=== PATIENT | female | born 1945 | race Caucasian/White ===

== ENCOUNTER 2017-05-08 09:35 | Emergency (ER) | payer OTHER, MEDICARE ==
[2017-05-08 09:48] VITALS: BP 154/91; PULSE 98; TEMP 97.8; BMI 39.2
--- NOTE | 2017-05-08 09:56 | PDOC ---
History of Present Illness - General Chief Complaint: Pain Stated Complaint: RT SHOULDER PAIN Time Seen by Provider: 05/08/17 09:42 History Source: Patient Exam Limitations: No Limitations - History of Present Illness Initial Comments: 05/08/17 09:57 72-year-old female history of arthritis, [id number], presents with right shoulder pain. The patient was visiting a patient here at [facility], she was attempting to catch the elevator and lunged for it. Patient started to feel right shoulder strain worsened with movements. States that when she palpates her right anterior shoulder and right upper pectoralis muscle that it reproduces the pain. Denies any neck pain or shooting-like sensation. Denies any numbness or weakness. Patient came into the ED for further evaluation. Past History - Past Medical History Allergies/Adverse Reactions: Allergies Allergy/AdvReac Type Severity Reaction Status Date / Time NARCOTICS AdvReac Nausea Uncoded 05/08/17 09:46 Home Medications: Ambulatory Orders Aspirin [ASA -] 81 mg PO DAILY 05/17/14 Atorvastatin Ca [Lipitor] 10 mg PO DAILY 05/17/14 Naproxen Sod/Diphenhydram HCl [Aleve Pm Caplet] 1 each PO HS 05/08/17 Ramipril 10 mg PO DAILY 05/08/17 HTN: Yes Hypercholesterolemia: Yes Other medical history: ARTHRITIS - Surgical History Appendectomy: Yes - Suicide/Smoking/Psychosocial Hx Smoking History: Never smoked Have you smoked in the past 12 months: No Information on smoking cessation initiated: No Hx Alcohol Use: (occasional) Substance Use Type: None Review of Systems - Review of Systems Able to Perform ROS?: Yes Comments:: 05/08/17 09:58 GENERAL/CONSTITUTIONAL: No fever, weakness. HEAD, EYES, EARS, NOSE AND THROAT: No change in vision. No ear pain or discharge. No sore throat. CARDIOVASCULAR: No chest pain or shortness of breath. RESPIRATORY: No cough, wheezing, or hemoptysis. GASTROINTESTINAL: No abdominal pain, nausea, vomiting, diarrhea, or decreased PO intolerance. GENITOURINARY: No dysuria, frequency, or change in urination. MUSCULOSKELETAL: No joint or muscle swelling or pain. No neck or back pain. + Right shoulder pain. SKIN: No rash NEUROLOGIC: No headache, vertigo, loss of consciousness, or change in strength/ sensation. ENDOCRINE: No increased thirst. No abnormal weight change. HEMATOLOGIC/LYMPHATIC: No anemia, easy bleeding, or history of blood clots. ALLERGIC/IMMUNOLOGIC: No hives or skin allergy. *Physical Exam - Vital Signs Last Vital Signs Temp Pulse Resp BP Pulse Ox 97.8 F 98 H 18 154/91 100 05/08/17 09:35 05/08/17 09:35 05/08/17 09:35 05/08/17 09:35 05/08/17 09:35 - Physical Exam Comments: 05/08/17 09:59 GENERAL: Awake, alert, and fully oriented, in no acute distress. HEAD: No signs of trauma EYES: PERRLA, EOMI, sclera anicteric, conjunctiva clear ENT: Auricles normal inspection, hearing grossly normal, nares patent, oropharynx clear without exudates. NECK: Normal ROM, supple, no lymphadenopathy, JVD, or masses LUNGS: Breath sounds equal, clear to auscultation bilaterally. No wheezes, and no crackles HEART: Regular rate and rhythm, normal S1 and S2, no murmurs, rubs or gallops ABDOMEN: Soft, nontender, normoactive bowel sounds. No guarding, no rebound. No masses EXTREMITIES: Normal range of motion, no edema. No clubbing or cyanosis. No cords, erythema, or tenderness. RUE: 2+ radial pulse. Median/radian/ulnar/deltoid sensation intact throughout. No gross deformity. Mild TTP right anterior shoulder and R upper pectoris muscle. Pain is reproducible with movements of R shoulder. Though has FROM. No cervical spine tenderness. No reproducible pain from cervical axial loading. NEUROLOGICAL: Cranial nerves II through XII grossly intact. Normal speech, normal gait SKIN: Warm, Dry, normal turgor, no rashes or lesions noted. Medical Decision Making - Medical Decision Making 05/08/17 10:00 Vital Signs Temp Pulse Resp BP Pulse Ox 97.8 F 98 H 18 154/91 100 05/08/17 09:35 05/08/17 09:35 05/08/17 09:35 05/08/17 09:35 05/08/17 09:35 I suspect the patient likely has a strain of her right shoulder. Very low suspicion for acute fractures or dislocation. I explained that the patient will likely need time, rest, heat packs and NSAIDs. I advised the patient that he may take several days before the symptoms improved. I also advised her to eat food with her NSAIDs. I instructed that if the symptoms are persistent for more than 2 weeks, that she should follow-up with orthopedist. She verbalizes understanding and agrees with plan. I discussed the physical exam findings, ancillary test results and final diagnoses with the patient. I answered all of the patient's questions. The patient was satisfied with the care received and felt comfortable with the discharge plan and treatment plan. The patient will call their primary care physician within 24 hours to arrange follow-up and will return to the Emergency Department with any new, persistant or worsening symptoms. *DC/Admit/Observation/Transfer Diagnosis at time of Disposition: Strain of shoulder, right Qualifiers: Encounter type: initial encounter Qualified Code(s): S46.911A - Strain of unspecified muscle, fascia and tendon at shoulder and upper arm level, right arm , initial encounter - Discharge Dispostion Disposition: HOME Condition at time of disposition: Stable Admit: No - Referrals Referrals: Cade Clark MD [Primary Care Provider] - Misha Strickland MD [Staff Physician] - - Patient Instructions Printed Discharge Instructions: DI for Shoulder Sprain, DI for Shoulder Pain Additional Instructions: Take 2 tablets (220 mg) naproxen (trade name: Alleve) every 12 hours as needed for pain. Activity as tolerated. Heat packs several times a day. If your pain is persistent for more than 2 weeks, please make an appointment with an orthopedist.
== END 2017-05-08 10:05 | disposition home or self-care (01) ==
LOC: FER 09:35
DX: S46.911A Strain of unspecified muscle, fascia and tendon at shoulder and upper arm level, right arm, initial encounter (principal); X58.XXXA Exposure to other specified factors, initial encounter; Y93.89 Activity, other specified; Y92.238 Other place in hospital as the place of occurrence of the external cause; I10 Essential (primary) hypertension; E78.00 Pure hypercholesterolemia, unspecified
CPT/HCPCS: 99283-25

== ENCOUNTER 2023-12-03 09:21 | Emergency (ER) | payer OTHER, MEDICARE ==
[2023-12-03 09:37] VITALS: BP 148/72; PULSE 90; RESP 16; TEMP 99.1; BMI 37.8
== END 2023-12-03 09:55 | disposition home or self-care (01) ==
LOC: FER 09:21
DX: I83.892 Varicose veins of left lower extremity with other complications (principal)
CPT/HCPCS: 99283-25